=== PATIENT | female | born 2000 | race Caucasian/White ===

== ENCOUNTER 2021-01-19 07:31 | Emergency (ER) | payer OTHER ==
[~2021-01-19] VITALS: Ht 160 cm; Wt 85.7 kg
[2021-01-19] MEDS ORDERED: HYDROCODONE/APAP 5MG-325MG TAB PO ONE (08:45)
[2021-01-19] MEDS ORDERED: TYLENOL # 31 EA PO ×2 (08:50→09:09)
[2021-01-19 09:38] VITALS: BP 115/81
== END 2021-01-19 09:39 | disposition home or self-care (01) ==
LOC: ER 07:56
DX: M25.561 Pain in right knee (principal); X50.1XXA Overexertion from prolonged static or awkward postures, initial encounter; Y93.11 Activity, swimming; Y92.34 Swimming pool (public) as the place of occurrence of the external cause
CPT/HCPCS: 99283

== ENCOUNTER → 2021-03-25 | Emergency (ER) | payer SELFPAY ==
[~2021-03-25] VITALS: Ht 160 cm; Wt 86.2 kg
[~2021-03-25] MED LIST: NYSTATIN100000 UNI PO; PREDNISONE20 MG PO; TYLENOL # 31 EA PO
== END | disposition home or self-care (01) ==
LOC: ER 13:10
DX: J02.0 Streptococcal pharyngitis (principal); B37.0 Candidal stomatitis
CPT/HCPCS: 83518; 87070; 99283

== ENCOUNTER 2022-04-09 20:29 | Emergency (ER) | payer OTHER ==
[~2022-04-09] VITALS: Ht 160 cm; Wt 81.6 kg
[2022-04-09] MEDS ORDERED: KETOROLAC TROMETHAMINE 60 MG/2 ML VIAL IM ONE (21:00)
[2022-04-09 21:30] LABS: CLARITY,URINE CLOUDY (CLEAR); COLOR,URINE YELLOW (YELLOW); KETONES,URINE 1+ (NEGATIVE); LEUKOCYTE ESTERASE ,URINE NEGATIVE (NEGATIVE); NITRITE,URINE NEGATIVE (NEGATIVE); PROTEIN,URINE DIPSTICK 1+ (NEGATIVE)
[2022-04-09 21:31] LABS: URINE UROBILINOGEN 0.2 mg/dL (0.2 - 1)
[2022-04-09 21:42] LABS: BACTERIA,URINE MANY /HPF; RBC,URINE 21-50 /HPF (0-5)
[2022-04-09 21:43] LABS: EPITHELIAL CELLS,URINE MANY /LPF; MUCUS,URINE MANY (RARE)
[2022-04-09] MEDS ORDERED: CIPRO500 MG PO (22:40)
[2022-04-09 22:43] VITALS: BP 127/85
== END 2022-04-09 22:44 | disposition home or self-care (01) ==
LOC: ER 20:34
DX: R50.9 Fever, unspecified (principal); N39.0 Urinary tract infection, site not specified; R10.13 Epigastric pain; R11.2 Nausea with vomiting, unspecified; Z20.822 Contact with and (suspected) exposure to COVID-19
CPT/HCPCS: 71046; 74176; 81001; 81025; 99283; J1885; U0002